=== PATIENT | female | born 1995 | race Caucasian/White ===

== ENCOUNTER 2023-02-20 12:38 | Emergency (ER) | payer MEDICAID ==
[~2023-02-20] VITALS: Ht 157.5 cm; Wt 52.2 kg
[2023-02-20 12:54] VITALS: BP_SYST 121; PULSE 76; RESP 16; TEMP 98.5; O2SAT 99
[2023-02-20] MEDS ORDERED: IBUP-1969 PO (16:03)
[2023-02-20] MEDS ORDERED: HYDR-3927 PO (16:03)
[2023-02-20 16:09] VITALS: BP_SYST 125; PULSE 72; RESP 18; TEMP 98.2; O2SAT 99
== END 2023-02-20 16:10 | disposition home or self-care (01) ==
LOC: SED 12:38
DX: S30.0XXA Contusion of lower back and pelvis, initial encounter (principal); Z88.0 Allergy status to penicillin; Z79.899 Other long term (current) drug therapy; W19.XXXA Unspecified fall, initial encounter; Y93.89 Activity, other specified; Y92.89 Other specified places as the place of occurrence of the external cause; Y99.8 Other external cause status
CPT/HCPCS: 72100-TC; 72220-TC; 81025; 99284